=== PATIENT | male | born 1950 | race Native Hawaiian/Other Pacific Islander ===

== ENCOUNTER 2016-08-06 10:00 | Outpatient (CLI) | payer OTHER | END 2016-08-06 19:45 | disposition home or self-care (01) | LOC: RAD 10:00 | DX: M25.511 Pain in right shoulder (principal) ==

== ENCOUNTER 2018-09-01 12:35 | Outpatient (CLI) | payer OTHER | END 2018-09-01 23:02 | disposition home or self-care (01) | LOC: RAD 12:35 | DX: M25.561 Pain in right knee (principal) ==